=== PATIENT | female | born 1955 | race African-American/Black ===

== ENCOUNTER 2017-11-07 07:33 | Observation (INO) | payer BC ==
[2017-11-07 07:58] LABS: #Basophils 0.1 thou/uL (0.0-0.2); #Eosinphils 0.1 thou/uL (0.0-0.7); #Monocytes 0.4 thou/uL (0.11-0.59); #Neutrophils 3.9 thou/uL (1.40-6.50); %Basophils 0.9 % (0.0-1.0); %Eosinophils 1.2 % (0.0-10.0); %Lymphocytes 31.5 % (21.0-51.0); %Monocytes 6.1 % (0.0-10.0); %Neutrophils 60.3 % (42.0-75.0); Hemoglobin 15.8 g/dL (12.0-16.0); Mean Corpuscular HGB CONC 31.9 g/dL (32.0-36.0); Mean Corpuscular Hemoglobin 27.3 pg (27.0-31.0); Mean Corpuscular Volume 85.5 fl (81.0-99.0); Platelet Count 314 thou/uL (130-400); Red Blood Cell (RBC) Count 5.77 mill/uL (4.20-5.40); White Blood Cell (WBC) Count 6.4 thou/uL (4.8-10.8)
[2017-11-07 08:22] LABS: ALT (SGPT) 19 U/L (8-55); AST (SGOT) 15 U/L (5-34); Albumin 4.7 g/dL (3.4-4.8); Alkaline Phosphatase 112 U/L (40-150); Anion Gap 15 mmol/L (10-20); BUN (Urea Nitrogen) 20 mg/dL (9.8-20.1); Bilirubin, Total 0.5 mg/dL (0.2-1.2); CK (CPK) 82 U/L (29-168); Calc. Creatinine Clearance 0 mL/min (70-130); Calcium 9.5 mg/dL (7.8-10.44); Carbon Dioxide 24 mmol/L (23-31); Chloride 103 mmol/L (98-107); Estimated GFR-MDRD 59; Globulin 2.9 g/dL (2.4-3.5); Glucose 167 mg/dL (80-115); Potassium 4.1 mmol/L (3.5-5.1); Protein, Total 7.6 g/dL (6.0-8.3); Sodium 138 mmol/L (136-145)
[2017-11-07 08:22] LABS: Bilirubin Negative (Negative); Blood, Urine Trace (Negative); Clarity CLEAR (Clear); Glucose, Urine (Dipstick) Negative (Negative); Leukocyte Moderate (Negative); Nitrite Negative (Negative); Protein, Urine (Dipstick) Trace mg/dL (Neg-Trace); Specific Gravity, Urine 1.027 (1.002-1.036); pH, Urine 5.5 (5.0-9.0)
[2017-11-07 08:24] LABS: Bacteria/HPF None Seen HPF (None Seen); Hyaline Casts/LPF 4-6 HYALINE CAST LPF (0-3 Hyaline); Pathc Cast-AUWi Flag 0.29 (0-2.49); RBC/HPF 0-3 HPF (0-3); Squamous Epithelial 0-3 HPF (0-3); WBC/HPF 21-50 HPF (0-3)
[2017-11-07 08:25] LABS: CKMB 1.1 ng/mL (0-6.6); Troponin I Less than 0.010 ng/mL (< 0.028)
--- NOTE | 2017-11-07 09:58 | RAD ---
FRONTAL VIEW CHEST: COMPARISON: 01/07/17. INDICATION: Near syncope. FINDINGS: There is no evidence of consolidation, effusion, or pneumothorax. The lungs are hyperinflated. IMPRESSION: Stable chest. POS: [facility]
[2017-11-07 12:08] LABS: Troponin I Less than 0.010 ng/mL (< 0.028)
[2017-11-07] MEDS ORDERED: hydrALAZINE 20 MG/ML VIAL SLOW IVP PRN (12:25)
[2017-11-07] MEDS ORDERED: HumaLOG 300 UNITS/3 ML VIAL SC PRN ×2 (12:25)
[2017-11-07] MEDS ORDERED: Dextrose 5% in Water 1,000 ML IV PRN (12:25)
[2017-11-07] MEDS ORDERED: Mag-Al 1200 mg/1200 mg/30 ML UDCUP PO PRN (12:25)
[2017-11-07] MEDS ORDERED: Ondansetron ODT 4 MG TAB PO PRN (12:25)
[2017-11-07] MEDS ORDERED: Acetaminophen 325 MG TAB PO PRN (12:25)
[2017-11-07] MEDS ORDERED: Ondansetron HCl/PF 4 MG/2 ML Vial IVP PRN (12:25)
[2017-11-07] MEDS ORDERED: Milk Of Magnesia 30 ML UDCUP PO PRN (12:25)
[2017-11-07] MEDS ORDERED: Dextrose 50% Abboject 50 ML SYRINGE SLOW IVP PRN (12:25)
[2017-11-07] MEDS: Sodium Chloride 0.9% 1,000 ML IV SCH ×2 (13:01→23:15)
--- NOTE | 2017-11-07 13:22 | HP ---
PRIMARY CARE PHYSICIAN: Alisa Rollins. CHIEF COMPLAINT: "I passed out." HISTORY OF PRESENT ILLNESS: Ms. Proctor is a very pleasant 62-year-old -[place] female who has a history of diabetes mellitus and hypertension. She says that she started feeling sick the day before yesterday and then vomited later that evening and then the following morning, she said that s he was lying in bed and felt lightheaded and she thought it might pass. She says she then stood up a nd was walking across the room and then found herself on the floor and she assumed she must have pass ed out. She denies having any chest pain prior to this event. The only symptom was feeling a bit li ghtheaded. She admits that she has been out of her glyburide for the past week and she is not sure w hat her blood sugars were doing when this occurred. She did have a similar episode that happened [place] 2.5-3 years ago. Those records were reviewed. She had a nuclear stress test and carotid Dopplers as well as an echo, all of which were negative. She says that she was told that it might be due to something about when she stands up. The patient otherwise has some complaints of some pain in her le ft leg off and on, but now her leg is not hurting and she also complained of some soreness in her mid abdominal region, but otherwise is feeling fine. The nausea has resolved. REVIEW OF SYSTEMS: Constitutional: There have been no fevers, no chills, no night sweats, no weight loss. HEENT: No headache. She did feel a little bit lightheaded, but no dizziness, no visual chin ges, no sore throat, rhinorrhea, neck pain, no adenopathy. Pulmonary: No hemoptysis, no cough, no w heezing. Cardiovascular: She denies any chest pain. There is no shortness of breath, no PND, no or thopnea. Gastrointestinal: She did have some nausea and vomiting. She had 3 episodes the night israel or to admission and some mild epigastric abdominal pain. No hematemesis, no melena, no diarrhea. Ge nitourinary: She has had some urinary frequency in the last couple of days after she ran out of glyb uride. No dysuria, no hematuria. Musculoskeletal: Again, she complains of some pains in her left l eg off and on, sometimes it makes it hard for her to walk. She also says that she notices some swell ing in her hands and feet. She says sometimes it gets as both get as balloons and it is hard to clos e them and she has this off and on. Neurologic: She has had no focal weakness, numbness and no seiz ures. Psychiatric: No symptoms of anxiety or depression. Skin/Integument: No skin changes. No ra sh. PAST MEDICAL HISTORY: Significant for diabetes mellitus, hyperlipidemia, tobacco abuse and hypertens ion. PAST SURGICAL HISTORY: She has had a hysterectomy. ALLERGIES: No known drug allergies. SOCIAL HISTORY: She is . She has 4 children of her own. Her has two of his own. Sh natacha occasionally smokes as well as she occasionally drinks. Her surrogate decision maker is her yash caro and that is Mr. Sage Baird. FAMILY HISTORY: Significant for intestinal cancer in her mother. MEDICATIONS: She takes glyburide and lisinopril. She is not sure of either dose and she admits she has been out of glyburide for the last week. PHYSICAL EXAMINATION: GENERAL: She is alert and oriented. She appears to be in no acute distress. She is actually sittin g up on the stretcher eating a box lunch, well-developed, well-nourished. VITAL SIGNS: Blood pressure was 140/91, heart rate 67, respiratory rate of 16 and temperature is 98. 7. HEENT: Pupils are equal, round and reactive. Extraocular muscles are intact. Her sclerae are anict sarahi. Throat: There is no erythema, no exudates. NECK: No adenopathy, no bruits. LUNGS: Clear to auscultation. There is no wheezing, no rales. CARDIOVASCULAR: She has a normal S1 and S2. I did not appreciate an S3 or S4. No murmurs, clicks, no rubs. ABDOMEN: Soft. She did have some mid abdominal tenderness, but there is no rebound, no guarding, no organomegaly. EXTREMITIES: There is no clubbing, cyanosis, no edema. She has got good dorsalis pedis pulses and p osterior tibial pulses bilaterally. There is no warmth, was negative cords. NEUROLOGIC: Her muscle strength was 5/5 in both her upper and lower extremities. She had a negative straight leg raises on the left. No skin changes. LABORATORY RESULTS AND IMAGING DATA: Sodium 138, potassium 4.1, chloride is 103, CO2 is 24, BUN of 2 0, creatinine 1.13, glucose is 167. Lactic acid was 1.3. White blood cell count 6.4, hemoglobin 15. 8, hematocrit is 49.3 and platelet count is 314. Urinalysis was significant for 21-50 wbc's. There is no bacteria seen, and nitrites were negative and she had an EKG, which was sinus rhythm. The rate was in the 60s and it was normal. There was no ST wave changes that is by my reading and she also h ad a chest x-ray which was stable. No changes. ASSESSMENT AND PLAN: This is a pleasant 62-year-old female that presents with a: 1. Syncopal episode. It is very similar to previous presentation about 2 years ago and at that time she had a full workup including stress test, echo and carotid Dopplers, all of which were negative. It is interesting that each episode occurs at night or in the enrollment consultant hours. This was discuss ed and she has not been checking her blood sugars. In one episode, she got extremely diaphoretic and I explained to her that she could be getting hypoglycemic and that could be precipitating these epis odes and that she will need to check her blood sugars at night or when this happens. Other possibili ties include orthostatic hypotension. Her creatinine is slightly elevated from baseline and she has been out of glyburide for a week and has had some polyuria as a result and then she vomited prior to the episode and I suspect she could have had orthostatic hypotension as well. As a precaution, we wi ll go ahead and place her in observation, start her on IV fluids for hydration and restart glyburide. The emergency room physician had ordered an ultrasound to evaluate the abdominal pain in the event that she did have gallstones and we will also order an anti-CCP to rule out rheumatoid arthritis as w ell as a rheumatoid factor. 2. With regards to the left leg pain, it is currently not hurting now. Her leg looks completely yaakov ign with no swelling. Good distal pulses. Negative straight leg raising. It is unclear whether or not this could be some type of musculoskeletal strain, but this can be evaluated in the outpatient se tting.
[2017-11-07 14:58] LABS: Troponin I Less than 0.010 ng/mL (< 0.028)
[2017-11-07 15:44] VITALS: BMI 20.1
[2017-11-08 05:19] LABS: #Eosinphils 0.1 thou/uL (0.0-0.7); #Monocytes 0.4 thou/uL (0.11-0.59); #Neutrophils 2.8 thou/uL (1.40-6.50); %Basophils 0.8 % (0.0-1.0); %Eosinophils 2.2 % (0.0-10.0); %Lymphocytes 36.5 % (21.0-51.0); %Monocytes 8.1 % (0.0-10.0); %Neutrophils 52.4 % (42.0-75.0); Hemoglobin 13.1 g/dL (12.0-16.0); Mean Corpuscular HGB CONC 32.4 g/dL (32.0-36.0); Mean Corpuscular Hemoglobin 27.9 pg (27.0-31.0); Mean Platelet Volume 8.4 fL (7.4-10.4); Platelet Count 254 thou/uL (130-400); RBC Distribution Width 12.6 % (11.5-14.5); White Blood Cell (WBC) Count 5.4 thou/uL (4.8-10.8)
[2017-11-08 05:25] LABS: Anion Gap 9 mmol/L (10-20); BUN (Urea Nitrogen) 14 mg/dL (9.8-20.1); Calc. Creatinine Clearance 62 mL/min (70-130); Calcium 8.6 mg/dL (7.8-10.44); Carbon Dioxide 26 mmol/L (23-31); Chloride 107 mmol/L (98-107); Estimated GFR-MDRD Greater than 90; Glucose 171 mg/dL (80-115); Potassium 4.2 mmol/L (3.5-5.1); Sodium 138 mmol/L (136-145)
--- NOTE | 2017-11-08 08:54 | ULT ---
SONOGRAM ABDOMEN COMPLETE: Date: 11/08/17 HISTORY: Abdominal pain. Nausea and vomiting. FINDINGS: Gallbladder has a normal appearance without evidence of stones. Common duct is 0.3 cm. Liver is diffu sely echogenic without focal mass or intrahepatic biliary dilatation. No free fluid. The spleen, kidn eys, and visualized portions of the abdominal aorta, IVC, and pancreas have a normal sonographic appe arance. IMPRESSION: 1. No sonographic evidence of gallstones or biliary obstruction. 2. Hepatic steatosis. POS: [facility]
[2017-11-08] MEDS ORDERED: Enoxaparin Sodium 40 MG/0.4 ML SYRINGE SC SCH (09:00)
[2017-11-08] MEDS: Sodium Chloride 0.9% 1,000 ML IV SCH (09:13)
--- NOTE | 2017-11-08 12:05 | PDOC.PN ---
- Subjective Encounter Start Date: 11/08/17 Encounter Start Time: 12:02 Ms. Proctor was seen today in follow-up. She says she was up " all night" due to blood draws, otherwise ok. - Objective Resuscitation Status: Resuscitation Status FULL:Full Resuscitation MAR Reviewed: Yes Vital Signs & Weight: Vital Signs (12 hours) Temp Pulse Resp BP BP Pulse Ox 11/08/17 08:30 98.1 F 60 16 11/08/17 07:28 98.1 F 60 16 146/77 H 97 11/08/17 04:25 97.5 F L 68 18 140/89 98 Weight Weight 103 lb 5 oz I&O: 11/07/17 11/08/17 11/09/17 06:59 06:59 06:59 Intake Total 1200 Balance 1200 Result Diagrams: 11/08/17 04:24 11/08/17 04:24 Additional Labs: Accuchecks 11/08/17 11/07/17 11/07/17 10:51 20:56 16:11 POC Glucose 203 H 184 H 182 H 11/07/17 13:00 POC Glucose 263 H Phys Exam - Physical Examination HEENT: PERRLA Respiratory: no wheezing, no rales, no rhonchi, clear to auscultation bilateral Cardiovascular: RRR, no significant murmur, no rub Gastrointestinal: soft, non-tender, no distention, positive bowel sounds Musculoskeletal: no edema Dx/Plan (1) Dehydration Code(s): E86.0 - DEHYDRATION Status: Acute (2) Syncope Code(s): R55 - SYNCOPE AND COLLAPSE Status: Acute (3) DM type 2 (diabetes mellitus, type 2) Status: Chronic (4) Fatty liver Code(s): K76.0 - FATTY (CHANGE OF) LIVER, NOT ELSEWHERE CLASSIFIED Status: Chronic - Plan * Syncope- I suspect this was due to dehydration * Abdominal ultrasound- was negative for gallstones, demonstrated fattyliver- which can be treated as outpatient * Uncontrolled DM- discussed with patient in detail, she will need to check her blood glucose at least twice a day and follow-up with her primary care physician for further instructions.
[2017-11-08 12:31] VITALS: BP 174/77; TEMP 98.5
--- NOTE | 2017-11-08 21:08 | DIS ---
PRIMARY CARE PHYSICIAN: Alisa Rollins NP DATE OF ADMISSION: 11/07/2017 DATE OF DISCHARGE: 11/08/2017 DISCHARGE DISPOSITION: Home. PRIMARY DISCHARGE DIAGNOSES: 1. Syncope, likely related to dehydration. 2. Diabetes mellitus, type 2. 3. Hyperlipidemia. 4. Tobacco abuse. 5. Hypertension. DISCHARGE MEDICATIONS: Same as on admission and include lisinopril 10 mg daily and glipizide 5 mg tw ice a day. CODE STATUS: FULL CODE. ALLERGIES: No known drug allergies. PROCEDURES DONE DURING ADMISSION: The patient had an abdominal ultrasound, which was negative for ch olelithiasis, but did show some fatty infiltration of the liver. HOSPITAL COURSE: Ms. Proctor is a pleasant 62-year-old female that presented to the emergency room with complaint of passing out at home. It was very similar to at least two other episodes that she has had. She came to our hospital approximately 2 years ago and had a workup including a nuclear str ess test, carotid Dopplers, and an echo, all of which were negative. The events surrounding the sync opal episode make it suspicious for possible volume depletion in that. She had been out of her glybu ride for over a week and noted some polyuria as a result of that and then had an episode of vomiting then the night before and her creatinine was slightly elevated as well. Troponins were all negative and after given the patient some IV fluids, she was feeling much better the next day and is being dis charged home with close followup. She was instructed to check her blood sugars at least twice a day record them and bring those in to her primary care physician so that she can make adjustments on her medications if needed and also she was told to follow up with regards to some hand and feet swelling that she was having and anti-CCP as well as a rheumatoid factor were drawn, but those results were pe nding at the time of discharge.
[2017-11-10 11:48] LABS: CCP IgG Antibody Less than 0.4 EliAU/mL (<7 Negative); EliA RAS New Method **** NEW METHOD ****; Rheumatoid Factor IgA Antibody 4.4 IU/mL (<14 Negative); Rheumatoid Factor IgM Antibody 1.2 IU/mL (<3.5 Negative)
== END 2017-11-08 12:53 | disposition home or self-care (01) ==
LOC: ERS 07:33 → 2SW 12:19
PROVIDERS: ADMIT Internal Medicine; ATTEND Internal Medicine
DX: R55 Syncope and collapse (principal); E11.9 Type 2 diabetes mellitus without complications; E78.5 Hyperlipidemia, unspecified; F17.200 Nicotine dependence, unspecified, uncomplicated; I10 Essential (primary) hypertension; K76.0 Fatty (change of) liver, not elsewhere classified; Z79.84 Long term (current) use of oral hypoglycemic drugs; Z79.899 Other long term (current) drug therapy; Z90.710 Acquired absence of both cervix and uterus
CPT/HCPCS: 36415; 36416; 71045; 76700; 80048; 80053; 81003; 81015; 82553; 83520; 83605; 84484; 85025; 86200; 87086; 93005; 94760; 96360; 96361; 96372; G0378; G8978-GP-CI; G8979-GP-CI; G8980-GP-CI; J1650

== ENCOUNTER 2018-03-26 12:23 | Emergency (ER) | payer BC ==
[2018-03-26 13:09] LABS: #Eosinphils 0.1 thou/uL (0.0-0.7); #Lymphocytes 1.5 thou/uL (1.20-3.40); #Monocytes 0.3 thou/uL (0.11-0.59); #Neutrophils 3.3 thou/uL (1.40-6.50); %Basophils 0.6 % (0.0-1.0); %Eosinophils 1.8 % (0.0-10.0); %Monocytes 5.7 % (0.0-10.0); %Neutrophils 62.9 % (42.0-75.0); Hemoglobin 13.1 g/dL (12.0-16.0); Mean Corpuscular HGB CONC 33.6 g/dL (32.0-36.0); Mean Corpuscular Hemoglobin 27.9 pg (27.0-31.0); Platelet Count 219 thou/uL (130-400); RBC Distribution Width 12.3 % (11.5-14.5); Red Blood Cell (RBC) Count 4.69 mill/uL (4.20-5.40); White Blood Cell (WBC) Count 5.3 thou/uL (4.8-10.8)
[2018-03-26 13:30] LABS: ALT (SGPT) 12 U/L (8-55); AST (SGOT) 10 U/L (5-34); Alkaline Phosphatase 101 U/L (40-150); Anion Gap 16 mmol/L (10-20); BUN (Urea Nitrogen) 14 mg/dL (9.8-20.1); Bilirubin, Total 0.3 mg/dL (0.2-1.2); Calc. Creatinine Clearance 0 mL/min (70-130); Calcium 8.8 mg/dL (7.8-10.44); Carbon Dioxide 20 mmol/L (23-31); Chloride 108 mmol/L (98-107); Estimated GFR-MDRD Greater than 90; Globulin 2.4 g/dL (2.4-3.5); Glucose 207 mg/dL (80-115); Potassium 4.1 mmol/L (3.5-5.1); Protein, Total 6.4 g/dL (6.0-8.3); Sodium 140 mmol/L (136-145)
[2018-03-26 13:33] LABS: CKMB 1.3 ng/mL (0-6.6); Troponin I Less than 0.010 ng/mL (< 0.028)
--- NOTE | 2018-03-26 14:07 | RAD ---
PORTABLE AP CHEST X-RAY: 03/26/2018 HISTORY: Dizziness and shaking while walking up stairs at work today. Syncope. Nausea and headache. COMPARISON: 11/07/2017 FINDINGS: The cardiac silhouette is magnified by projection but is at the upper limits of normal to borderline enlarged. The pulmonary vasculature is within normal limits. The lungs are clear. There has been n o other interval change from the prior study. IMPRESSION: 1. No acute cardiopulmonary process. 2. Upper limits of normal to borderline cardiomegaly. POS: [facility]
--- NOTE | 2018-03-28 16:38 | EKG ---
Test Reason : Blood Pressure : / mmHG Vent. Rate : 063 BPM Atrial Rate : 063 BPM P-R Int : 124 ms QRS Dur : 062 ms QT Int : 430 ms P-R-T Axes : 034 073 041 degrees QTc Int : 440 ms Normal sinus rhythm Normal ECG Confirmed by EDUIN ZALDIVAR ([id number]), assignment desk editor RUBINA NICOLE ([id number] on 03/28/2018 4:37:26 PM Referred By: Confirmed By:EDUIN ZALDIVAR
== END 2018-03-26 13:52 | disposition home or self-care (01) ==
LOC: ERS 12:23
DX: R55 Syncope and collapse (principal); I10 Essential (primary) hypertension; E78.5 Hyperlipidemia, unspecified; E11.9 Type 2 diabetes mellitus without complications; F17.210 Nicotine dependence, cigarettes, uncomplicated; Z79.899 Other long term (current) drug therapy
CPT/HCPCS: 36415; 71045; 80053; 82553; 84484; 85025; 85379; 93005; 96360

== ENCOUNTER 2018-07-31 16:11 | Emergency (ER) | payer BC ==
[2018-07-31 17:44] LABS: #Eosinphils 0.1 thou/uL (0.0-0.7); #Lymphocytes 2.1 thou/uL (1.20-3.40); #Monocytes 0.4 thou/uL (0.11-0.59); #Neutrophils 3.6 thou/uL (1.40-6.50); %Basophils 0.8 % (0.0-1.0); %Eosinophils 1.9 % (0.0-10.0); %Lymphocytes 33.9 % (21.0-51.0); %Monocytes 6.7 % (0.0-10.0); %Neutrophils 56.7 % (42.0-75.0); Hemoglobin 14.1 g/dL (12.0-16.0); Mean Corpuscular HGB CONC 32.7 g/dL (32.0-36.0); Mean Corpuscular Volume 82.6 fL (78.0-98.0); Mean Platelet Volume 8.6 fL (7.4-10.4); Platelet Count 279 thou/uL (130-400); RBC Distribution Width 12.2 % (11.5-14.5); Red Blood Cell (RBC) Count 5.21 mill/uL (4.20-5.40); White Blood Cell (WBC) Count 6.3 thou/uL (4.8-10.8)
[2018-07-31 18:07] LABS: ALT (SGPT) 13 U/L (8-55); AST (SGOT) 12 U/L (5-34); Albumin 4.4 g/dL (3.4-4.8); Alkaline Phosphatase 152 U/L (40-150); Anion Gap 12 mmol/L (10-20); BUN (Urea Nitrogen) 15 mg/dL (9.8-20.1); Bilirubin, Total 0.2 mg/dL (0.2-1.2); Calc. Creatinine Clearance 0 mL/min (70-130); Calcium 9.6 mg/dL (7.8-10.44); Carbon Dioxide 29 mmol/L (23-31); Chloride 99 mmol/L (98-107); Estimated GFR-MDRD 71; Globulin 3.1 g/dL (2.4-3.5); Glucose 266 mg/dL (80-115); Potassium 4.1 mmol/L (3.5-5.1); Protein, Total 7.5 g/dL (6.0-8.3); Sodium 136 mmol/L (136-145)
[2018-07-31 18:18] LABS: Bilirubin Negative (Negative); Blood, Urine Negative (Negative); Clarity CLEAR (Clear); Glucose, Urine (Dipstick) >=1000 mg/dL (Negative); Leukocyte Small (Negative); Nitrite Negative (Negative); Protein, Urine (Dipstick) Trace mg/dL (Neg-Trace); Specific Gravity, Urine 1.029 (1.002-1.036); Urobilinogen 0.2 mg/dL (0.2-1.0); pH, Urine 6.5 (5.0-9.0)
[2018-07-31 18:20] LABS: Bacteria/HPF None Seen HPF (None Seen); Hyaline Casts/LPF 0-3 HYALINE CAST LPF (0-3 Hyaline); Squamous Epithelial 0-3 HPF (0-3)
--- NOTE | 2018-07-31 19:42 | CT ---
NONCONTRAST HEAD CT: 07/31/18 HISTORY: Left arm pain and hand numbness. COMPARISON: 01/07/17. FINDINGS: No parenchymal hemorrhage. No extra-axial hematoma. No midline shift. Basilar cisterns are patent. Br ain volume, age appropriate. Cortical hughes-white matter differentiation is preserved. No evidence of hydrocephalus. Stable white matter hypodensities likely due to chronic small vessel is chemic change. Calvarium is intact. Adequate aeration of the sinuses and mastoid air cells. IMPRESSION: No acute intracranial process. POS: [facility]
== END 2018-07-31 19:45 | disposition home or self-care (01) ==
LOC: ERS 16:11
DX: M54.12 Radiculopathy, cervical region (principal); N89.8 Other specified noninflammatory disorders of vagina; I10 Essential (primary) hypertension; E78.5 Hyperlipidemia, unspecified; E11.9 Type 2 diabetes mellitus without complications; F17.210 Nicotine dependence, cigarettes, uncomplicated; Z79.899 Other long term (current) drug therapy
CPT/HCPCS: 36415; 70450; 80053; 81003; 81015; 85025; 87086

== ENCOUNTER 2018-10-29 11:59 | Emergency (ER) | payer BC ==
[2018-10-29] MEDS ORDERED: HYDROcodone/Acetaminophen 5/325 mg Tablet ONE (13:01)
[2018-10-29] MEDS ORDERED: Acyclovir 400 mg Tablet PO SCH (13:30)
== END 2018-10-29 14:27 | disposition home or self-care (01) ==
LOC: ERS 11:59
DX: B02.9 Zoster without complications (principal); I10 Essential (primary) hypertension; E78.5 Hyperlipidemia, unspecified; E11.9 Type 2 diabetes mellitus without complications; Z87.891 Personal history of nicotine dependence; Z79.84 Long term (current) use of oral hypoglycemic drugs; Z79.899 Other long term (current) drug therapy
CPT/HCPCS: 99282

== ENCOUNTER 2019-02-05 19:36 | Emergency (ER) | payer BC ==
[2019-02-05] MEDS ORDERED: Ketorolac Tromethamine 30 MG/ML VIAL ONE (22:40)
[2019-02-05] MEDS ORDERED: Adacel (T-DAP) 0.5 ML SYRINGE ONE (22:45)
[2019-02-05 23:01] LABS: #Basophils 0.1 thou/uL (0.0-0.2); #Eosinphils 0.1 thou/uL (0.0-0.7); #Monocytes 0.5 thou/uL (0.11-0.59); #Neutrophils 7.8 thou/uL (1.40-6.50); %Basophils 0.5 % (0.0-1.0); %Eosinophils 1.1 % (0.0-10.0); %Lymphocytes 19.2 % (21.0-51.0); %Neutrophils 74.1 % (42.0-75.0); Hemoglobin 14.6 g/dL (12.0-16.0); Mean Corpuscular HGB CONC 33.3 g/dL (32.0-36.0); Mean Corpuscular Hemoglobin 27.4 pg (27.0-31.0); Mean Corpuscular Volume 82.5 fL (78.0-98.0); Mean Platelet Volume 8.6 fL (7.4-10.4); Platelet Count 266 thou/uL (130-400); RBC Distribution Width 12.5 % (11.5-14.5); Red Blood Cell (RBC) Count 5.31 mill/uL (4.20-5.40); White Blood Cell (WBC) Count 10.5 thou/uL (4.8-10.8)
[2019-02-05 23:22] LABS: ALT (SGPT) 18 U/L (8-55); AST (SGOT) 12 U/L (5-34); Albumin 4.7 g/dL (3.4-4.8); Alkaline Phosphatase 128 U/L (40-150); Anion Gap 21 mmol/L (10-20); BUN (Urea Nitrogen) 15 mg/dL (9.8-20.1); Bilirubin, Total 0.3 mg/dL (0.2-1.2); CRP (Inflammatory) 0.88 mg/dL (= or < 0.5); Calc. Creatinine Clearance 0 mL/min (70-130); Calcium 9.6 mg/dL (7.8-10.44); Carbon Dioxide 19 mmol/L (23-31); Chloride 100 mmol/L (98-107); Estimated GFR-MDRD 65; Globulin 3.2 g/dL (2.4-3.5); Glucose 417 mg/dL (80-115); Potassium 4.5 mmol/L (3.5-5.1); Protein, Total 7.9 g/dL (6.0-8.3); Sodium 135 mmol/L (136-145)
[2019-02-05] MEDS ORDERED: Piperacillin/Tazobactam 3.375 GM VIAL ONE (23:59)
== END 2019-02-06 01:25 | disposition short-term general hospital (02) ==
LOC: ERS 19:36
DX: S63.611A Unspecified sprain of left index finger, initial encounter (principal); I10 Essential (primary) hypertension; E78.5 Hyperlipidemia, unspecified; Z87.891 Personal history of nicotine dependence; Z79.899 Other long term (current) drug therapy; W26.0XXA Contact with knife, initial encounter
CPT/HCPCS: 36415; 80053; 85025; 85652; 86140; 87040; 87149; 90471; 90715; 96365; 96367; 96375; J1885; J2543; J3370

== ENCOUNTER 2019-06-28 16:42 | Emergency (ER) | payer BC ==
[2019-06-28] MEDS ORDERED: Ketorolac Tromethamine 30 MG/ML VIAL ONE (18:20)
== END 2019-06-28 18:36 | disposition home or self-care (01) ==
LOC: ERS 16:42
DX: H71.91 Unspecified cholesteatoma, right ear (principal); E11.9 Type 2 diabetes mellitus without complications; I10 Essential (primary) hypertension; Z87.891 Personal history of nicotine dependence
CPT/HCPCS: 96372; 99282; J1885

== ENCOUNTER 2020-08-18 09:42 | Emergency (ER) | payer BC ==
[2020-08-18] MEDS ORDERED: Promethazine HCl 25 MG/ML VIAL ONE (10:00)
[2020-08-18] MEDS ORDERED: Aspirin Chewable 81 MG TAB ONE (10:18)
--- NOTE | 2020-08-18 10:47 | RAD ---
Exam: Chest one view HISTORY:Weakness Comparison: 03/26/2018 FINDINGS: Cardiac silhouette: Normal Aorta: Unremarkable Pulmonary vessels: Normal Costophrenic angles: Clear LUNGS: No masses or consolidation. Pneumothorax: None Osseous abnormalities: None IMPRESSION: No acute cardiopulmonary process.
[2020-08-18 10:56] LABS: #Lymphocytes 1.1 thou/uL (1.20-3.40); #Monocytes 0.3 thou/uL (0.11-0.59); #Neutrophils 3.7 thou/uL (1.40-6.50); %Basophils 0.9 % (0.0-1.0); %Eosinophils 0.5 % (0.0-10.0); %Monocytes 5.1 % (0.0-10.0); %Neutrophils 72.6 % (42.0-75.0); Hemoglobin 14.7 g/dL (12.0-16.0); Mean Corpuscular HGB CONC 33.5 g/dL (32.0-36.0); Mean Corpuscular Hemoglobin 27.7 pg (27.0-31.0); Mean Corpuscular Volume 82.7 fL (78.0-98.0); Mean Platelet Volume 9.1 fL (7.4-10.4); Platelet Count 214 thou/uL (130-400); RBC Distribution Width 12.3 % (11.5-14.5); Red Blood Cell (RBC) Count 5.29 mill/uL (4.20-5.40); White Blood Cell (WBC) Count 5.1 thou/uL (4.8-10.8)
[2020-08-18 11:05] LABS: Bacteria/HPF None Seen HPF (None Seen); Bilirubin Negative (Negative); Blood, Urine Trace (Negative); Clarity Clear (Clear); Glucose, Urine (Dipstick) Greater than 1000 mg/dL (Negative); Ketone, Urine 60 mg/dL (Negative); Leukocyte Negative Leu/uL (Negative); Nitrite Negative (Negative); Protein, Urine (Dipstick) Negative (Neg-Trace); RBC/HPF 0-3 HPF (0-3); Squamous Epithelial 0-3 HPF (0-3); Urobilinogen Normal mg/dL (Less than 2); WBC/HPF 0-3 HPF (0-3); pH, Urine 5.5 (5.0-9.0)
[2020-08-18] MEDS ORDERED: Lidocaine Viscous Sol 2% 15 ml UD Cup ONE (11:12)
[2020-08-18] MEDS ORDERED: Mag-Al 1200 mg/1200 mg/30 ML UDCUP ONE (11:12)
[2020-08-18 11:20] LABS: ALT (SGPT) 19 U/L (8-55); AST (SGOT) 12 U/L (5-34); Albumin 4.4 g/dL (3.4-4.8); Alkaline Phosphatase 115 U/L (40-110); Anion Gap 17 mmol/L (10-20); BUN (Urea Nitrogen) 10 mg/dL (9.8-20.1); Bilirubin, Total 0.6 mg/dL (0.2-1.2); Calc. Creatinine Clearance 0 mL/min (70-130); Carbon Dioxide 25 mmol/L (23-31); Chloride 99 mmol/L (98-107); Globulin 2.7 g/dL (2.4-3.5); Glucose 360 mg/dL (80-115); Lipase 28 U/L (8-78); Potassium 3.9 mmol/L (3.5-5.1); Protein, Total 7.1 g/dL (6.0-8.3); Sodium 137 mmol/L (136-145)
[2020-08-18] MEDS ORDERED: Famotidine/PF 20 mg/2ml Vial ONE (12:24)
--- NOTE | 2020-09-09 22:15 | EKG ---
Test Reason : Blood Pressure : / mmHG Vent. Rate : 057 BPM Atrial Rate : 057 BPM P-R Int : 120 ms QRS Dur : 082 ms QT Int : 466 ms P-R-T Axes : 057 069 062 degrees QTc Int : 453 ms Sinus bradycardia Otherwise normal ECG Confirmed by RENZO SARAVIA DO ([id number]), scientific editor EMILIANO JENSEN ([id number] on 09/09/2020 10:15:49 PM Referred By: Confirmed By:RENZO SARAVIA DO
== END 2020-08-18 12:38 | disposition home or self-care (01) ==
LOC: ERS 09:42
DX: K29.70 Gastritis, unspecified, without bleeding (principal); E11.65 Type 2 diabetes mellitus with hyperglycemia; R11.2 Nausea with vomiting, unspecified; I10 Essential (primary) hypertension; E78.00 Pure hypercholesterolemia, unspecified; E78.5 Hyperlipidemia, unspecified; Z87.891 Personal history of nicotine dependence; Z79.899 Other long term (current) drug therapy; Z79.84 Long term (current) use of oral hypoglycemic drugs
CPT/HCPCS: 36415; 71045; 80053; 81003; 81015; 83690; 83880; 84484; 85025; 85379; 93005; 96374; 96375; J2550; S0028

== ENCOUNTER 2021-12-16 20:28 | Emergency (ER) | payer MEDICARE ==
[~2021-12-16 20:28] MED LIST: Iopamidol-370 76% 500 ML 1 ML ONE
[2021-12-16] MEDS ORDERED: Ondansetron PF 4 MG/2 ML Vial ONE (20:59)
[2021-12-16 21:10] LABS: #Lymphocytes 1.8 thou/uL (1.20-3.40); #Monocytes 0.8 thou/uL (0.11-0.59); #Neutrophils 7.9 thou/uL (1.40-6.50); %Basophils 0.3 % (0.0-1.0); %Eosinophils 0.1 % (0.0-10.0); %Lymphocytes 17.3 % (21.0-51.0); %Monocytes 7.2 % (0.0-10.0); %Neutrophils 75.1 % (42.0-75.0); Hemoglobin 16.5 g/dL (12.0-16.0); Mean Corpuscular HGB CONC 33.6 g/dL (32.0-36.0); Mean Corpuscular Hemoglobin 28.3 pg (27.0-31.0); Mean Corpuscular Volume 84.4 fL (78.0-98.0); Mean Platelet Volume 7.9 fL (7.4-10.4); Platelet Count 354 thou/uL (130-400); RBC Distribution Width 12.8 % (11.5-14.5); Red Blood Cell (RBC) Count 5.82 mill/uL (4.20-5.40); White Blood Cell (WBC) Count 10.5 thou/uL (4.8-10.8)
[2021-12-16 21:31] LABS: ALT (SGPT) 27 U/L (8-55); AST (SGOT) 14 U/L (5-34); Albumin 5.6 g/dL (3.4-4.8); Alkaline Phosphatase 111 U/L (40-110); Anion Gap 28 mmol/L (10-20); BUN (Urea Nitrogen) 24 mg/dL (9.8-20.1); Bilirubin, Total 0.8 mg/dL (0.2-1.2); Calc. Creatinine Clearance 0 mL/min (70-130); Calcium 10.8 mg/dL (7.8-10.44); Carbon Dioxide 22 mmol/L (23-31); Chloride 95 mmol/L (98-107); Globulin 3.5 g/dL (2.4-3.5); Glucose 339 mg/dL (80-115); Lipase 20 U/L (8-78); Potassium 4.3 mmol/L (3.5-5.1); Protein, Total 9.1 g/dL (5.8-8.1); Sodium 141 mmol/L (136-145)
[2021-12-16] MEDS ORDERED: Morphine 4 MG/ML VIAL ONE (21:45)
[2021-12-16 22:50] LABS: Phosphorus 2.4 mg/dL (2.3-4.7)
[2021-12-16 23:52] LABS: Actual Bicarbonate (HCO3v) 24 mEq/L (22-28); Analyzer IN Cardio ER; Base Excess 0.4 mEq/L (-2.0 to +3.0); Chloride (VBG) 105 mmol/L (98-106); Hemoglobin (Hb) 13.8 g/dL (11.7-16.1); Potassium (VBG) 3.84 mmol/L (3.70-5.30); Sodium 141.1 mmol/L (133-146); pH (venous) 7.44 (7.32-7.43)
[2021-12-17 01:07] LABS: Bacteria/HPF None Seen HPF (None Seen); Bilirubin Negative (Negative); Blood, Urine Trace (Negative); Clarity Clear (Clear); Glucose, Urine (Dipstick) Greater than 1000 mg/dL (Negative); Ketone, Urine 150 mg/dL (Negative); Leukocyte 25 Leu/uL (Negative); Mucous/LPF Rare LPF (<2+); Nitrite Negative (Negative); Protein, Urine (Dipstick) 200 mg/dL (Neg-Trace); RBC/HPF 0-3 HPF (0-3); Urobilinogen Normal mg/dL (Less than 2); pH, Urine 6.5 (5.0-9.0)
[2021-12-17] MEDS ORDERED: Ondansetron PF 4 MG/2 ML Vial ONE (02:07)
== END 2021-12-17 02:20 | disposition home or self-care (01) ==
LOC: ERS 20:28
DX: R11.2 Nausea with vomiting, unspecified (principal); E11.9 Type 2 diabetes mellitus without complications; E78.5 Hyperlipidemia, unspecified; E78.00 Pure hypercholesterolemia, unspecified; M81.0 Age-related osteoporosis without current pathological fracture; Z87.891 Personal history of nicotine dependence
CPT/HCPCS: 36416; 71045; 74177; 80053; 81003; 81015; 82010; 82805; 83690; 83735; 84100; 84484; 85025; 87086; 93005; 96361; 96374; 96375; 96376; J2270; J2405; Q9967

== ENCOUNTER 2022-01-10 21:43 | Emergency (ER) | payer MEDICARE ==
[2022-01-10 22:17] LABS: #Eosinphils 0.1 thou/uL (0.0-0.7); #Lymphocytes 2.1 thou/uL (1.20-3.40); #Monocytes 0.5 thou/uL (0.11-0.59); #Neutrophils 6.4 thou/uL (1.40-6.50); %Basophils 0.4 % (0.0-1.0); %Eosinophils 0.9 % (0.0-10.0); %Lymphocytes 23.2 % (21.0-51.0); %Monocytes 5.5 % (0.0-10.0); Hemoglobin 15.1 g/dL (12.0-16.0); Mean Corpuscular HGB CONC 33.1 g/dL (32.0-36.0); Mean Corpuscular Hemoglobin 28.2 pg (27.0-31.0); Mean Corpuscular Volume 85.4 fL (78.0-98.0); Platelet Count 330 thou/uL (130-400); RBC Distribution Width 12.7 % (11.5-14.5); Red Blood Cell (RBC) Count 5.37 mill/uL (4.20-5.40); White Blood Cell (WBC) Count 9.1 thou/uL (4.8-10.8)
[2022-01-10 22:29] LABS: ALT (SGPT) 19 U/L (8-55); AST (SGOT) 15 U/L (5-34); Albumin 5.1 g/dL (3.4-4.8); Alkaline Phosphatase 105 U/L (40-110); Anion Gap 21 mmol/L (10-20); BUN (Urea Nitrogen) 24 mg/dL (9.8-20.1); Bilirubin, Total 0.6 mg/dL (0.2-1.2); Calc. Creatinine Clearance 0 mL/min (70-130); Calcium 10.4 mg/dL (7.8-10.44); Carbon Dioxide 25 mmol/L (23-31); Chloride 99 mmol/L (98-107); Globulin 3.4 g/dL (2.4-3.5); Glucose 228 mg/dL (80-115); Lipase 36 U/L (8-78); Potassium 3.8 mmol/L (3.5-5.1); Protein, Total 8.5 g/dL (5.8-8.1); Sodium 141 mmol/L (136-145)
[2022-01-10] MEDS ORDERED: Haloperidol Lactate 5 MG/ML VIAL ONE (23:14)
[2022-01-10] MEDS ORDERED: Ondansetron ODT 4 MG TAB ONE (23:14)
[2022-01-10 23:52] LABS: Bilirubin Negative (Negative); Blood, Urine Negative (Negative); Clarity Clear (Clear); Glucose, Urine (Dipstick) Greater than 1000 mg/dL (Negative); Ketone, Urine 40 mg/dL (Negative); Leukocyte Negative Leu/uL (Negative); Nitrite Negative (Negative); Protein, Urine (Dipstick) Negative (Neg-Trace); Specific Gravity, Urine 1.042 (1.002-1.036); Urobilinogen Normal mg/dL (Less than 2); pH, Urine 5.5 (5.0-9.0)
== END 2022-01-11 00:52 | disposition home or self-care (01) ==
LOC: ERS 21:43
DX: R11.15 Cyclical vomiting syndrome unrelated to migraine (principal); I10 Essential (primary) hypertension; E78.5 Hyperlipidemia, unspecified; E11.9 Type 2 diabetes mellitus without complications; E78.00 Pure hypercholesterolemia, unspecified; M81.0 Age-related osteoporosis without current pathological fracture; Z87.891 Personal history of nicotine dependence; Z79.84 Long term (current) use of oral hypoglycemic drugs; Z79.899 Other long term (current) drug therapy
CPT/HCPCS: 36415; 36416; 71045; 80053; 81003; 83690; 84484; 85025; 93005; 96361; 96374; J1630; Q0162

== ENCOUNTER 2022-04-24 09:13 | Outpatient (CLI) | payer OTHER | END 2022-04-24 09:14 | disposition home or self-care (01) | LOC: BICMAMMO 09:13 | PROVIDERS: ATTEND Family Medicine | DX: Z12.31 Encounter for screening mammogram for malignant neoplasm of breast (principal); Z13.820 Encounter for screening for osteoporosis; Z78.0 Asymptomatic menopausal state; M81.0 Age-related osteoporosis without current pathological fracture; M85.851 Other specified disorders of bone density and structure, right thigh; M85.852 Other specified disorders of bone density and structure, left thigh | CPT/HCPCS: 77063; 77067; 77080 ==

== ENCOUNTER 2022-07-20 11:20 | Emergency (ER) | payer MEDICARE, OTHER ==
[2022-07-20 12:08] LABS: #Eosinphils 0.1 thou/uL (0.0-0.7); #Lymphocytes 1.9 thou/uL (1.20-3.40); #Monocytes 0.4 thou/uL (0.11-0.59); #Neutrophils 6.1 thou/uL (1.40-6.50); %Basophils 0.2 % (0.0-1.0); %Eosinophils 0.8 % (0.0-10.0); %Lymphocytes 22.5 % (21.0-51.0); %Neutrophils 71.4 % (42.0-75.0); Hemoglobin 16.4 g/dL (12.0-16.0); Mean Corpuscular HGB CONC 33.6 g/dL (32.0-36.0); Mean Corpuscular Hemoglobin 28.8 pg (27.0-31.0); Mean Corpuscular Volume 85.7 fl (78.0-98.0); Mean Platelet Volume 8.4 fL (7.4-10.4); Platelet Count 299 10x3/uL (130-400); RBC Distribution Width 12.8 % (11.5-14.5); Red Blood Cell (RBC) Count 5.68 mill/uL (4.20-5.40); White Blood Cell (WBC) Count 8.6 10x3/uL (4.8-10.8)
[2022-07-20 12:30] LABS: ALT (SGPT) 25 U/L (8-55); AST (SGOT) 19 U/L (5-34); Albumin 4.9 g/dL (3.4-4.8); Alkaline Phosphatase 105 U/L (40-110); Anion Gap 21 mmol/L (10-20); BUN (Urea Nitrogen) 17 mg/dL (9.8-20.1); Bilirubin, Total 0.7 mg/dL (0.2-1.2); Calc. Creatinine Clearance 0 mL/min (70-130); Calcium 9.7 mg/dL (7.8-10.44); Carbon Dioxide 24 mmol/L (23-31); Chloride 99 mmol/L (98-107); Estimated GFR 67; Globulin 3.2 g/dL (2.4-3.5); Glucose 212 mg/dL (80-115); Lipase 22 U/L (8-78); Potassium 3.8 mmol/L (3.5-5.1); Protein, Total 8.1 g/dL (5.8-8.1); Sodium 140 mmol/L (136-145)
[2022-07-20] MEDS ORDERED: Ondansetron PF 4 MG/2 ML Vial ONE (12:37)
[2022-07-20] MEDS ORDERED: Acetaminophen 500 MG TAB ONE (12:37)
[2022-07-20 13:40] LABS: Bilirubin Negative (Negative); Blood, Urine Negative (Negative); Clarity Clear (Clear); Glucose, Urine (Dipstick) Greater than 1000 mg/dL (Negative); Ketone, Urine 100 mg/dL (Negative); Leukocyte Negative Leu/uL (Negative); Nitrite Negative (Negative); Protein, Urine (Dipstick) 10 mg/dL (Neg-Trace); Specific Gravity, Urine 1.044 (1.002-1.036); Urobilinogen Normal mg/dL (Less than 2); pH, Urine 5.5 (5.0-9.0)
== END 2022-07-20 14:27 | disposition home or self-care (01) ==
LOC: ERS 11:20
DX: R11.2 Nausea with vomiting, unspecified (principal); E86.0 Dehydration; I10 Essential (primary) hypertension; E78.00 Pure hypercholesterolemia, unspecified; E11.9 Type 2 diabetes mellitus without complications; Z79.899 Other long term (current) drug therapy
CPT/HCPCS: 36415; 80053; 81003; 83690; 85025; 87804; 96361; 96374; J2405

== ENCOUNTER 2023-01-31 10:52 | Inpatient (IN) | payer OTHER ==
[2023-01-31] MEDS ORDERED: Morphine 4 MG/ML VIAL ONE (11:11)
[2023-01-31] MEDS ORDERED: Ondansetron PF 4 MG/2 ML Vial ONE ×2 (11:11→12:55)
[2023-01-31 11:23] LABS: #Eosinphils 0.1 thou/uL (0.0-0.7); #Monocytes 0.4 thou/uL (0.11-0.59); #Neutrophils 4.4 thou/uL (1.40-6.50); %Basophils 0.6 % (0.0-1.0); %Eosinophils 0.9 % (0.0-10.0); %Lymphocytes 22.7 % (21.0-51.0); %Monocytes 5.6 % (0.0-10.0); Mean Corpuscular HGB CONC 32.6 g/dL (32.0-36.0); Mean Corpuscular Hemoglobin 26.5 pg (27.0-31.0); Mean Corpuscular Volume 81.3 fl (78.0-98.0); Mean Platelet Volume 10.7 fL (7.4-10.4); Platelet Count 264 10x3/uL (130-400); RBC Distribution Width 13.9 % (11.5-14.5); Red Blood Cell (RBC) Count 5.28 mill/uL (4.20-5.40); White Blood Cell (WBC) Count 6.4 10x3/uL (4.8-10.8)
[2023-01-31 11:48] LABS: ALT (SGPT) 24 U/L (8-55); AST (SGOT) 12 U/L (5-34); Albumin 4.4 g/dL (3.4-4.8); Alkaline Phosphatase 121 U/L (40-110); Anion Gap 18 mmol/L (10-20); BUN (Urea Nitrogen) 10 mg/dL (9.8-20.1); Bilirubin, Total 0.4 mg/dL (0.2-1.2); Calc. Creatinine Clearance 0 mL/min (70-130); Calcium 9.6 mg/dL (7.8-10.44); Carbon Dioxide 21 mmol/L (23-31); Chloride 104 mmol/L (98-107); Estimated GFR 74; Globulin 2.8 g/dL (2.4-3.5); Glucose 345 mg/dL (80-115); Lipase 26 U/L (8-78); Potassium 4.7 mmol/L (3.5-5.1); Protein, Total 7.2 g/dL (5.8-8.1); Sodium 138 mmol/L (136-145)
[2023-01-31] MEDS ORDERED: Piperacillin/Tazobactam 4.5 GM VIAL ONE (12:04)
[2023-01-31] MEDS ORDERED: Iopamidol-370 76% 500 ML MDV (1 ML CHARGE) ONE (12:09)
[2023-01-31] MEDS ORDERED: Vancomycin 1 GM/200 ML (FROZEN) BAG ONE (12:42)
[2023-01-31] MEDS ORDERED: fentaNYL 50 mcg/mL 1 mL Vial ONE (12:56)
[2023-01-31 13:38] LABS: Bacteria/HPF None Seen HPF (None Seen); Bilirubin Negative (Negative); Blood, Urine Negative (Negative); CAUTI Indications for Culture Pelvic or flank pain; Clarity Clear (Clear); Glucose, Urine (Dipstick) Greater than 1000 mg/dL (Negative); Ketone, Urine 10 mg/dL (Negative); Leukocyte Negative Leu/uL (Negative); Nitrite Negative (Negative); Protein, Urine (Dipstick) Negative (Neg-Trace); RBC/HPF 0-3 HPF (0-3); Specific Gravity, Urine 1.022 (1.002-1.036); Squamous Epithelial None Seen HPF (0-3); Urobilinogen Normal mg/dL (Less than 2); WBC/HPF 0-3 HPF (0-3)
[2023-01-31 13:40] LABS: Urine Culture Reflex No No
[2023-01-31 15:45] LABS: SARS-CoV-2 NAA Rapid Test Not Detected (NotDetected)
[2023-01-31 17:32] VITALS: BMI 19.3
[2023-01-31] MEDS ORDERED: Ondansetron PF 4 MG/2 ML Vial IVP PRN (17:45)
[2023-01-31] MEDS ORDERED: Ondansetron ODT 4 MG TAB SL PRN (17:45)
[2023-01-31] MEDS ORDERED: Lactated Ringer's 1,000 ML IV SCH (17:45)
[2023-01-31] MEDS ORDERED: Dextrose 5% in Water 1,000 ML IV PRN (17:49)
[2023-01-31] MEDS ORDERED: Glucagon 1 MG/ML KIT IM PRN (17:49)
[2023-01-31] MEDS ORDERED: Acetaminophen 325 MG TAB PO PRN (17:49)
[2023-01-31] MEDS ORDERED: Dextrose 50% Abboject 50 ML SYRINGE SLOW IVP PRN (17:49)
[2023-01-31] MEDS ORDERED: Metoclopramide HCl 10 MG/2 ML VIAL IVP PRN (17:52)
[2023-01-31] MEDS ORDERED: Fluconazole 100 MG TAB PO SCH (17:53)
[2023-01-31] MEDS: Lactated Ringer's 1,000 ML IV SCH (18:36)
[2023-01-31] MEDS ORDERED: Vancomycin HCl 1 GM in Sodium Chloride 0.9% 250 ML 250 ML IVPB SCH (21:00)
[2023-01-31] MEDS ORDERED: Gabapentin 300 MG CAP PO SCH (21:45)
[2023-01-31] MEDS: Pantoprazole 40 MG VIAL IVP SCH (21:47)
[2023-01-31] MEDS: Piperacillin/Tazobactam 3.375 GM in Sodium Chloride 0.9% 100 ML IVPB SCH (21:47)
[2023-01-31] MEDS: HumaLOG 300 UNITS/3 ML VIAL SC PRN (21:49)
[2023-01-31] MEDS ORDERED: Lactated Ringer's 500 ML IV SCH (22:15)
[2023-02-01] MEDS: HumaLOG 300 UNITS/3 ML VIAL SC PRN ×4 (01:15→19:00)
[2023-02-01] MEDS: Vancomycin HCl 500 MG in Sodium Chloride 0.9% 100 ML IVPB SCH ×2 (01:22→12:58)
[2023-02-01 01:24] LABS: #Monocytes 0.7 thou/uL (0.11-0.59); #Neutrophils 10.5 thou/uL (1.40-6.50); %Basophils 0.3 % (0.0-1.0); %Eosinophils 0.1 % (0.0-10.0); %Lymphocytes 11.3 % (21.0-51.0); %Monocytes 5.4 % (0.0-10.0); %Neutrophils 82.4 % (42.0-75.0); Hemoglobin 12.3 g/dL (12.0-16.0); Mean Corpuscular HGB CONC 32.3 g/dL (32.0-36.0); Mean Corpuscular Hemoglobin 26.8 pg (27.0-31.0); Mean Platelet Volume 10.6 fL (7.4-10.4); Platelet Count 261 10x3/uL (130-400); RBC Distribution Width 14.3 % (11.5-14.5); Red Blood Cell (RBC) Count 4.59 mill/uL (4.20-5.40); White Blood Cell (WBC) Count 12.8 10x3/uL (4.8-10.8)
[2023-02-01] MEDS: Lactated Ringer's 1,000 ML IV SCH ×3 (01:31→11:13)
[2023-02-01 01:45] LABS: Hemoglobin A1c Greater than 14.0 % (4.0-6.0)
[2023-02-01 01:46] LABS: ALT (SGPT) 22 U/L (8-55); AST (SGOT) 14 U/L (5-34); Albumin 3.9 g/dL (3.4-4.8); Alkaline Phosphatase 93 U/L (40-110); Anion Gap 21 mmol/L (10-20); BUN (Urea Nitrogen) 10 mg/dL (9.8-20.1); Bilirubin, Total 0.4 mg/dL (0.2-1.2); Calc. Creatinine Clearance 37 mL/min (70-130); Calcium 8.5 mg/dL (7.8-10.44); Carbon Dioxide 17 mmol/L (23-31); Chloride 106 mmol/L (98-107); Estimated GFR 57; Globulin 2.5 g/dL (2.4-3.5); Glucose 264 mg/dL (80-115); Magnesium 1.6 mg/dL (1.6-2.6); Protein, Total 6.4 g/dL (5.8-8.1); Sodium 140 mmol/L (136-145)
[2023-02-01] MEDS ORDERED: Lactated Ringer's 1,000 ML IV SCH (02:45)
[2023-02-01] MEDS: Piperacillin/Tazobactam 3.375 GM in Sodium Chloride 0.9% 100 ML IVPB SCH ×3 (04:35→21:13)
[2023-02-01 07:37] LABS: Lactic Acid 3.1 mmol/L (0.5-2.2)
[2023-02-01] MEDS: Valsartan 80 MG TAB PO SCH (09:11)
[2023-02-01] MEDS: Alogliptin 25 MG TAB PO SCH (09:11)
[2023-02-01] MEDS: Atorvastatin Calcium 20 MG TAB PO SCH (09:11)
[2023-02-01] MEDS ORDERED: Insulin Glargine 30 UNITS/0.3 ML VIAL SC SCH (09:30)
[2023-02-01] MEDS ORDERED: oxyCODONE/Acetaminophen 5 mg/325 mg Tablet PO SCH (14:30)
[2023-02-01] MEDS: Gabapentin 300 MG CAP PO SCH (21:11)
[2023-02-01] MEDS: Fioricet 325/50/40 mg Tablet PO PRN (21:12)
[2023-02-01] MEDS: Pantoprazole 40 MG VIAL IVP SCH (21:13)
[2023-02-02] MEDS: Vancomycin HCl 500 MG in Sodium Chloride 0.9% 100 ML IVPB SCH (01:11)
[2023-02-02] MEDS: Piperacillin/Tazobactam 3.375 GM in Sodium Chloride 0.9% 100 ML IVPB SCH (03:23)
[2023-02-02] MEDS: Lactated Ringer's 1,000 ML IV SCH ×3 (03:24→21:20)
[2023-02-02 06:18] LABS: ALT (SGPT) 43 U/L (8-55); AST (SGOT) 29 U/L (5-34); Albumin 3.2 g/dL (3.4-4.8); Alkaline Phosphatase 90 U/L (40-110); BUN (Urea Nitrogen) 7 mg/dL (9.8-20.1); Bilirubin, Total 0.4 mg/dL (0.2-1.2); Calc. Creatinine Clearance 56 mL/min (70-130); Calcium 8.5 mg/dL (7.8-10.44); Carbon Dioxide 19 mmol/L (23-31); Chloride 109 mmol/L (98-107); Estimated GFR 95; Globulin 2.4 g/dL (2.4-3.5); Glucose 146 mg/dL (80-115); Magnesium 1.6 mg/dL (1.6-2.6); Potassium 3.5 mmol/L (3.5-5.1); Protein, Total 5.6 g/dL (5.8-8.1); Sodium 138 mmol/L (136-145)
[2023-02-02 06:49] LABS: Anion Gap 14 mmol/L (10-20)
[2023-02-02 10:17] LABS: #Eosinphils 0.1 thou/uL (0.0-0.7); #Monocytes 0.7 thou/uL (0.11-0.59); %Basophils 0.5 % (0.0-1.0); %Eosinophils 0.6 % (0.0-10.0); %Lymphocytes 26.7 % (21.0-51.0); %Monocytes 8.4 % (0.0-10.0); Hemoglobin 12.7 g/dL (12.0-16.0); Mean Corpuscular HGB CONC 31.8 g/dL (32.0-36.0); Mean Corpuscular Hemoglobin 26.2 pg (27.0-31.0); Mean Corpuscular Volume 82.3 fl (78.0-98.0); Mean Platelet Volume 11.3 fL (7.4-10.4); Platelet Count 227 10x3/uL (130-400); RBC Distribution Width 14.5 % (11.5-14.5); Red Blood Cell (RBC) Count 4.85 mill/uL (4.20-5.40)
[2023-02-02] MEDS: Valsartan 80 MG TAB PO SCH (10:29)
[2023-02-02] MEDS: Atorvastatin Calcium 20 MG TAB PO SCH (10:29)
[2023-02-02] MEDS: Sodium Bicarbonate Tab 325 MG TAB PO SCH ×3 (10:29→21:04)
[2023-02-02] MEDS: Insulin Glargine 30 UNITS/0.3 ML VIAL SC SCH (10:29)
[2023-02-02] MEDS: cefTRIAXone\\ROCEPHIN 2 GM in Sodium Chloride 0.9% 100 ML IVPB SCH (10:30)
[2023-02-02] MEDS: Alogliptin 25 MG TAB PO SCH (10:34)
[2023-02-02 10:37] LABS: Lactic Acid 2.3 mmol/L (0.5-2.2)
[2023-02-02] MEDS: Fioricet 325/50/40 mg Tablet PO PRN ×2 (12:38→21:20)
[2023-02-02] MEDS ORDERED: Magnesium Sulfate 3 GM in Sodium Chloride 0.9% 100 ML IVPB SCH (18:30)
[2023-02-02] MEDS ORDERED: Potassium Chloride 20 MEQ TAB PO SCH (18:30)
[2023-02-02] MEDS: Gabapentin 300 MG CAP PO SCH (21:05)
[2023-02-02] MEDS: Pantoprazole 40 MG VIAL IVP SCH (21:32)
[2023-02-03 04:15] LABS: #Eosinphils 0.1 thou/uL (0.0-0.7); #Monocytes 0.7 thou/uL (0.11-0.59); #Neutrophils 5.6 thou/uL (1.40-6.50); %Basophils 0.4 % (0.0-1.0); %Eosinophils 0.7 % (0.0-10.0); %Monocytes 8.1 % (0.0-10.0); %Neutrophils 69.3 % (42.0-75.0); Hemoglobin 13.2 g/dL (12.0-16.0); Mean Corpuscular HGB CONC 32.7 g/dL (32.0-36.0); Mean Corpuscular Hemoglobin 26.9 pg (27.0-31.0); Mean Corpuscular Volume 82.3 fl (78.0-98.0); Mean Platelet Volume 11.2 fL (7.4-10.4); Platelet Count 259 10x3/uL (130-400); RBC Distribution Width 14.2 % (11.5-14.5); Red Blood Cell (RBC) Count 4.91 mill/uL (4.20-5.40)
[2023-02-03 04:42] LABS: ALT (SGPT) 45 U/L (8-55); AST (SGOT) 21 U/L (5-34); Albumin 4.2 g/dL (3.4-4.8); Alkaline Phosphatase 95 U/L (40-110); Anion Gap 14 mmol/L (10-20); BUN (Urea Nitrogen) 6 mg/dL (9.8-20.1); Bilirubin, Total 0.5 mg/dL (0.2-1.2); Calc. Creatinine Clearance 46 mL/min (70-130); Calcium 9.3 mg/dL (7.8-10.44); Carbon Dioxide 31 mmol/L (23-31); Chloride 103 mmol/L (98-107); Estimated GFR 76; Globulin 2.7 g/dL (2.4-3.5); Glucose 172 mg/dL (80-115); Magnesium 2.6 mg/dL (1.6-2.6); Potassium 3.7 mmol/L (3.5-5.1); Protein, Total 6.9 g/dL (5.8-8.1); Sodium 144 mmol/L (136-145)
[2023-02-03] MEDS: HumaLOG 300 UNITS/3 ML VIAL SC PRN ×2 (06:03→11:51)
[2023-02-03] MEDS: Sodium Bicarbonate Tab 325 MG TAB PO SCH (08:20)
[2023-02-03] MEDS: cefTRIAXone\\ROCEPHIN 2 GM in Sodium Chloride 0.9% 100 ML IVPB SCH (08:21)
[2023-02-03] MEDS: Alogliptin 25 MG TAB PO SCH (08:21)
[2023-02-03] MEDS: Valsartan 80 MG TAB PO SCH (08:21)
[2023-02-03] MEDS: Atorvastatin Calcium 20 MG TAB PO SCH (08:21)
[2023-02-03] MEDS: Insulin Glargine 30 UNITS/0.3 ML VIAL SC SCH (08:22)
[2023-02-03 14:42] VITALS: BP 174/93; TEMP 98.3
== END 2023-02-03 16:49 | disposition home or self-care (01) | DRG 865 ==
LOC: ERS 10:52 → EDUNIT# 10:52 → T4-B 17:25 → 2NO 19:20 → OBSVTOIN 02-03 13:54
PROVIDERS: ADMIT Internal Medicine; ATTEND Internal Medicine
DX: B34.9 Viral infection, unspecified (principal); E11.10 Type 2 diabetes mellitus with ketoacidosis without coma; R65.10 Systemic inflammatory response syndrome (SIRS) of non-infectious origin without acute organ dysfunction; R55 Syncope and collapse; I10 Essential (primary) hypertension; E78.5 Hyperlipidemia, unspecified; R33.9 Retention of urine, unspecified; E11.40 Type 2 diabetes mellitus with diabetic neuropathy, unspecified; E86.0 Dehydration; K31.84 Gastroparesis; K76.0 Fatty (change of) liver, not elsewhere classified; E11.65 Type 2 diabetes mellitus with hyperglycemia; Z79.84 Long term (current) use of oral hypoglycemic drugs; Z90.710 Acquired absence of both cervix and uterus; Z79.899 Other long term (current) drug therapy; Z98.890 Other specified postprocedural states; Z87.891 Personal history of nicotine dependence
CPT/HCPCS: 36415; 36416; 51701; 74177; 80053; 81001; 82010; 83036; 83605; 83690; 83735; 83880; 84145; 84484; 85025; 87040; 87081; 87086; 93005; 93010; 96361; 96365; 96367; 96375; 96376; C9113; G0378; J0696; J1815; J2270; J2405; J2543; J2765; J3010; J3370; J3370-JW; J3475; J3490; J7120; Q9967

== ENCOUNTER 2023-09-04 17:01 | Inpatient (IN) | payer OTHER, MEDICARE ==
[~2023-09-04 17:01] MED LIST changes: -Iopamidol-370 76% 500 ML 1 ML ONE; +Iopamidol-370 76% 500 ML MDV (1 ML CHARGE) ONE
[2023-09-04 17:34] LABS: #Eosinphils 0.1 thou/uL (0.0-0.7); #Monocytes 0.7 thou/uL (0.11-0.59); #Neutrophils 3.8 thou/uL (1.40-6.50); %Basophils 0.3 % (0.0-1.0); %Eosinophils 0.9 % (0.0-10.0); %Lymphocytes 39.1 % (21.0-51.0); %Monocytes 9.7 % (0.0-10.0); %Neutrophils 49.6 % (42.0-75.0); Hematocrit 41.9 % (36.0-47.0); Hemoglobin 13.9 g/dL (12.0-16.0); Mean Corpuscular HGB CONC 33.2 g/dL (32.0-36.0); Mean Corpuscular Hemoglobin 27.2 pg (27.0-31.0); Mean Platelet Volume 10.5 fL (7.4-10.4); Platelet Count 342 10x3/uL (130-400); RBC Distribution Width 14.6 % (11.5-14.5); Red Blood Cell (RBC) Count 5.11 mill/uL (4.20-5.40); White Blood Cell (WBC) Count 7.6 10x3/uL (4.8-10.8)
[2023-09-04 17:43] LABS: PTT 26.9 sec (22.9-36.1); Prothrombin Time 12.9 sec (12.0-14.7)
[2023-09-04 17:49] LABS: Critical Call w/ Read Back NUR.DP6@1745
[2023-09-04 17:54] LABS: Troponin I Less than 0.010 ng/mL (< 0.028)
[2023-09-04 17:54] LABS: Actual Bicarbonate (HCO3v) 21.7 mEq/L (22-28); Base Excess -1.2 mEq/L (-2.0 to +3.0); Calcium, Ionized (venous) 1.12 mmol/L (1.16-1.32); Chloride (VBG) 101 mmol/L (98-106); Hematocrit-VBG 41 % (36.0-47.0); Hemoglobin (Hb) 13.9 g/dL (11.7-16.1); Potassium (VBG) 3.59 mmol/L (3.70-5.30); Sodium 141 mmol/L (133-146); pH (venous) 7.459 (7.32-7.43)
[2023-09-04 17:57] LABS: Acetaminophen Less than 10 mcg/mL (10.0-30.0); Alcohol Less than 10.0 mg/dL (Less than 10); Lipase 44 U/L (8-78); Salicylate Less than 8.0 mg/dL (15.0-30.0)
[2023-09-04 18:06] LABS: Magnesium 2.2 mg/dL (1.6-2.6)
[2023-09-04] MEDS ORDERED: fentaNYL 50 mcg/mL 1 mL Vial ONE (18:14)
[2023-09-04] MEDS ORDERED: Ondansetron PF 4 MG/2 ML Vial ONE (18:14)
[2023-09-04 18:24] LABS: ALT (SGPT) 32 U/L (8-55); AST (SGOT) 31 U/L (5-34); Albumin 4.8 g/dL (3.4-4.8); Alkaline Phosphatase 118 U/L (40-110); Anion Gap 20 mmol/L (10-20); BUN (Urea Nitrogen) 20 mg/dL (9.8-20.1); Bilirubin, Total 0.4 mg/dL (0.2-1.2); CK (CPK) 137 U/L (29-168); Calc. Creatinine Clearance 0 mL/min (70-130); Calcium 9.4 mg/dL (7.8-10.44); Carbon Dioxide 22 mmol/L (23-31); Chloride 104 mmol/L (98-107); Estimated GFR 74; Glucose 151 mg/dL (80-115); Potassium 3.9 mmol/L (3.5-5.1); Protein, Total 7.8 g/dL (5.8-8.1); Sodium 142 mmol/L (136-145)
[2023-09-04 19:09] LABS: SARS-CoV-2 NAA Rapid Test Not Detected (NotDetected)
[2023-09-04] MEDS ORDERED: Acetaminophen 325 MG TAB PO PRN (20:30)
[2023-09-04] MEDS ORDERED: Ondansetron PF 4 MG/2 ML Vial IVP PRN (20:30)
[2023-09-04] MEDS ORDERED: Ondansetron ODT 4 MG TAB SL PRN (20:30)
[2023-09-04] MEDS ORDERED: Glucagon 1 MG/ML KIT IM PRN ×2 (20:47→20:49)
[2023-09-04] MEDS ORDERED: Dextrose 50% Abboject 50 ML SYRINGE SLOW IVP PRN ×2 (20:47→20:49)
[2023-09-04] MEDS ORDERED: Dextrose 5% in Water 1,000 ML IV PRN ×2 (20:47→20:49)
[2023-09-04 21:10] VITALS: BMI 18.9
[2023-09-04 21:25] LABS: Troponin I Less than 0.010 ng/mL (< 0.028)
[2023-09-04] MEDS: Famotidine/PF 20 mg/2ml Vial SLOW IVP SCH (21:31)
[2023-09-04] MEDS: Ketorolac Tromethamine 30 MG (1 mL) VIAL IVP SCH (23:39)
[2023-09-04] MEDS: Acetaminophen 500 MG TAB PO SCH (23:40)
[2023-09-05 00:39] LABS: Troponin I Less than 0.010 ng/mL (< 0.028)
[2023-09-05 05:25] LABS: #Monocytes 0.8 thou/uL (0.11-0.59); #Neutrophils 6.2 thou/uL (1.40-6.50); %Basophils 0.3 % (0.0-1.0); %Eosinophils 0.4 % (0.0-10.0); %Lymphocytes 22.6 % (21.0-51.0); %Neutrophils 67.5 % (42.0-75.0); Hemoglobin 11.5 g/dL (12.0-16.0); Mean Corpuscular HGB CONC 32.9 g/dL (32.0-36.0); Mean Corpuscular Hemoglobin 26.7 pg (27.0-31.0); Mean Corpuscular Volume 81.2 fl (78.0-98.0); Mean Platelet Volume 10.6 fL (7.4-10.4); Platelet Count 254 10x3/uL (130-400); RBC Distribution Width 14.6 % (11.5-14.5); Red Blood Cell (RBC) Count 4.31 mill/uL (4.20-5.40); White Blood Cell (WBC) Count 9.1 10x3/uL (4.8-10.8)
[2023-09-05 05:43] LABS: INR-International Normal Ratio 1.1; PTT 31.2 sec (22.9-36.1); Prothrombin Time 14.4 sec (12.0-14.7)
[2023-09-05] MEDS: HumaLOG 300 UNITS/3 ML VIAL SC PRN (05:49)
[2023-09-05 05:54] LABS: Anion Gap 13 mmol/L (10-20); BUN (Urea Nitrogen) 16 mg/dL (9.8-20.1); Calc. Creatinine Clearance 53 mL/min (70-130); Calcium 8.8 mg/dL (7.8-10.44); Carbon Dioxide 23 mmol/L (23-31); Chloride 108 mmol/L (98-107); Estimated GFR 79; Glucose 171 mg/dL (80-115); Potassium 3.3 mmol/L (3.5-5.1); Sodium 141 mmol/L (136-145)
[2023-09-05] MEDS: Lorazepam 2 MG/ML VIAL SLOW IVP SCH (07:31)
[2023-09-05] MEDS: Scopolamine 1 mg/72 hour Patch TD SCH (10:05)
[2023-09-05] MEDS: Potassium Citrate 10 MEQ TAB PO SCH (12:39)
[2023-09-05] MEDS: Enoxaparin 40 MG (0.4 mL) SYRINGE SC SCH (20:16)
[2023-09-05] MEDS: QUEtiapine 25 MG TAB PO PRN (20:17)
[2023-09-06 05:51] LABS: Troponin I Less than 0.010 ng/mL (< 0.028)
[2023-09-06] MEDS: Isosorbide Mononitrate 30 MG ER.TAB PO SCH (09:39)
[2023-09-06] MEDS: Atorvastatin Calcium 20 MG TAB PO SCH (09:39)
[2023-09-06] MEDS: Glimepiride 1 MG TAB PO SCH (09:54)
[2023-09-06 12:37] VITALS: TEMP 98.7
[2023-09-06 16:32] VITALS: BP 143/67
[2023-09-08] MEDS ORDERED: FLU VACC QS2023(65UP)/MF59C/PF 60 MCG/0.5 ML SYRINGE IM ONE (09:00)
== END 2023-09-06 14:50 | disposition home or self-care (01) | DRG 158 ==
LOC: ERS 17:01 → 2SE 20:11 → OBSVTOIN 09-06 10:45
PROVIDERS: ADMIT Student in an Organized Health Care Education/Training Program; ATTEND Family Medicine
DX: S02.40DA Maxillary fracture, left side, initial encounter for closed fracture (principal); S02.32XA Fracture of orbital floor, left side, initial encounter for closed fracture; S02.40FA Zygomatic fracture, left side, initial encounter for closed fracture; R55 Syncope and collapse; I10 Essential (primary) hypertension; E78.5 Hyperlipidemia, unspecified; E11.9 Type 2 diabetes mellitus without complications; R29.810 Facial weakness; F17.210 Nicotine dependence, cigarettes, uncomplicated; Z90.710 Acquired absence of both cervix and uterus; Z79.899 Other long term (current) drug therapy; Z79.84 Long term (current) use of oral hypoglycemic drugs; Z71.6 Tobacco abuse counseling; Z11.52 Encounter for screening for COVID-19; E11.65 Type 2 diabetes mellitus with hyperglycemia; R11.2 Nausea with vomiting, unspecified; K52.9 Noninfective gastroenteritis and colitis, unspecified
CPT/HCPCS: 36415; 36416; 70450; 70496; 70498; 70551; 71045; 74177; 80048; 80053; 80307; 81001; 82010; 82550; 82805; 83690; 83735; 83880; 84484; 85025; 85610; 85730; 93005; 93010; 93306; 94760; 96361; 96372; 96374; 96375; 96376; G0378; J1650; J1815; J1885; J2060; J2270; J2405; J2550; J3010; Q9967; S0028

== ENCOUNTER 2024-07-21 11:47 | Inpatient (IN) | payer OTHER, MEDICARE ==
[2024-07-21 12:34] LABS: #Basophils Less than 0.03 10x3/uL (0.0-0.2); %Basophils 0.3 % (0.0-1.0); %Eosinophils 2.8 % (0.0-10.0); %Lymphocytes 34.6 % (21.0-51.0); %Monocytes 7.8 % (0.0-10.0); Hematocrit 45.4 % (36.0-47.0); Hemoglobin 14.7 g/dL (12.0-16.0); Mean Corpuscular HGB CONC 32.4 g/dL (32.0-36.0); Mean Corpuscular Hemoglobin 26.3 pg (27.0-31.0); Mean Corpuscular Volume 81.2 fL (78.0-98.0); Mean Platelet Volume 10.9 fL (7.4-10.4); Platelet Count 341 10x3/uL (130-400); RBC Distribution Width 14.2 % (11.5-14.5); Red Blood Cell (RBC) Count 5.59 mill/uL (4.20-5.40)
[2024-07-21 12:47] LABS: INR-International Normal Ratio 0.9; Prothrombin Time 12.5 sec (12.0-14.7)
[2024-07-21 12:57] LABS: ALT (SGPT) 25 U/L (8-55); AST (SGOT) 16 U/L (5-34); Albumin 4.3 g/dL (3.4-4.8); Alkaline Phosphatase 135 U/L (40-110); Anion Gap 13 mmol/L (10-20); BUN (Urea Nitrogen) 8 mg/dL (9.8-20.1); Calc. Creatinine Clearance 0 mL/min (70-130); Calcium 10.1 mg/dL (7.8-10.44); Carbon Dioxide 27 mmol/L (23-31); Chloride 107 mmol/L (98-107); Estimated GFR 89; Globulin 3.6 g/dL (2.4-3.5); Glucose 73 mg/dL (80-115); Protein, Total 7.9 g/dL (5.8-8.1); Sodium 144 mmol/L (136-145)
[2024-07-21 13:05] LABS: Troponin I Less than 0.010 ng/mL (< 0.028)
[2024-07-21 13:32] LABS: Bacteria/HPF None Seen HPF (None Seen); Bilirubin Negative (Negative); Blood, Urine Negative (Negative); CAUTI Indications for Culture Dysuria,urgency,freq; Clarity Clear (Clear); Glucose, Urine (Dipstick) Normal (Negative); Ketone, Urine Negative (Negative); Leukocyte Negative Leu/uL (Negative); Nitrite Negative (Negative); Protein, Urine (Dipstick) Negative (Neg-Trace); RBC/HPF 0-3 HPF (0-3); Specific Gravity, Urine 1.007 (1.002-1.036); Squamous Epithelial None Seen HPF (0-3); Urobilinogen Normal mg/dL (Less than 2); WBC/HPF 0-3 HPF (0-3); pH, Urine 7.5 (5.0-9.0)
[2024-07-21 13:35] LABS: Bilirubin, Total 0.3 mg/dL (0.2-1.2)
[2024-07-21 13:37] LABS: Urine Culture Reflex No No
[2024-07-21] MEDS ORDERED: Meclizine HCl 25 MG TAB ONE (13:46)
[2024-07-21] MEDS ORDERED: Potassium Chloride 20 MEQ TAB ONE (14:35)
[2024-07-21] MEDS ORDERED: Insulin Lispro 100 UNIT/ML 10 ML VIAL SC PRN (15:11)
[2024-07-21] MEDS ORDERED: Ondansetron ODT 4 MG TAB PO PRN (15:11)
[2024-07-21] MEDS ORDERED: Ondansetron PF 4 MG/2 ML Vial IVP PRN (15:11)
[2024-07-21] MEDS ORDERED: Dextrose 50% Abboject 50 ML SYRINGE SLOW IVP PRN (15:11)
[2024-07-21] MEDS ORDERED: Dextrose 5% in Water 1,000 ML IV PRN (15:11)
[2024-07-21] MEDS ORDERED: Acetaminophen 325 MG TAB PO PRN (15:11)
[2024-07-21] MEDS ORDERED: Glucagon 1 MG/ML KIT IM PRN (15:11)
[2024-07-21 18:13] VITALS: BMI 21.1
[2024-07-21] MEDS: Valsartan 80 MG TAB PO SCH (20:17)
[2024-07-21] MEDS: Glimepiride 2 MG TAB PO SCH (20:17)
[2024-07-21] MEDS: QUEtiapine 25 MG TAB PO PRN (21:17)
[2024-07-22 05:40] LABS: #Basophils 0.03 10x3/uL (0.0-0.2); %Basophils 0.5 % (0.0-1.0); %Eosinophils 2.3 % (0.0-10.0); %Monocytes 8.4 % (0.0-10.0); %Neutrophils 56.5 % (42.0-75.0); Hematocrit 39.4 % (36.0-47.0); Hemoglobin 12.8 g/dL (12.0-16.0); Mean Corpuscular HGB CONC 32.5 g/dL (32.0-36.0); Mean Corpuscular Hemoglobin 26.2 pg (27.0-31.0); Mean Corpuscular Volume 80.7 fL (78.0-98.0); Platelet Count 279 10x3/uL (130-400); RBC Distribution Width 14.1 % (11.5-14.5); Red Blood Cell (RBC) Count 4.88 mill/uL (4.20-5.40)
[2024-07-22 05:46] LABS: Anion Gap 14 mmol/L (10-20); BUN (Urea Nitrogen) 9 mg/dL (9.8-20.1); Calc. Creatinine Clearance 61 mL/min (70-130); Calcium 8.3 mg/dL (7.8-10.44); Carbon Dioxide 25 mmol/L (23-31); Cardiac Risk 4.1 (Less than 4.5); Chloride 108 mmol/L (98-107); Cholesterol 177 mg/dl (< 200 Desired); Estimated GFR 95; Glucose 112 mg/dL (80-115); HDL Cholesterol 43 mg/dL (>60 Neg Risk); LDL Cholesterol, Calculated 111 mg/dL; Potassium 3.3 mmol/L (3.5-5.1); Sodium 144 mmol/L (136-145); Triglycerides 117 mg/dL (Less than 150)
[2024-07-22] MEDS ORDERED: Regadenoson 0.4 MG/5 ML SYRINGE ONE (11:06)
[2024-07-22] MEDS: NIFEdipine XL 30 MG ER.TAB PO SCH (12:48)
[2024-07-22] MEDS: Isosorbide Mononitrate 30 MG ER.TAB PO SCH (12:49)
[2024-07-22] MEDS: Atorvastatin Calcium 20 MG TAB PO SCH (12:49)
[2024-07-22] MEDS: Venlafaxine XR 37.5 MG CAP PO SCH (12:49)
[2024-07-22] MEDS: Insulin Glargine 30 UNITS/0.3 ML VIAL SC SCH (12:50)
[2024-07-22] MEDS: Potassium Chloride 20 MEQ in Premix 1 BAG IVPB SCH ×2 (12:50→15:53)
[2024-07-23 11:14] VITALS: BP 148/92; TEMP 98
[2024-07-23] MEDS: Insulin Lispro 100 UNIT/ML 10 ML VIAL SC PRN (11:49)
[2024-07-23] MEDS ORDERED: Lidocaine 1% w/Epinephrine 1:100K 20 ML VIAL ONE (13:10)
== END 2024-07-23 15:44 | disposition home or self-care (01) | DRG 261 ==
LOC: ERS 11:47 → OBS 14:42 → OBSVTOIN 07-22 15:50
PROVIDERS: ADMIT Internal Medicine; ATTEND Internal Medicine
PROC: 0JH602Z Insertion of Monitoring Device into Chest Subcutaneous Tissue and Fascia, Open Approach (ICD-10-PCS; principal; 2024-07-23)
DX: I95.1 Orthostatic hypotension (principal); M48.54XA Collapsed vertebra, not elsewhere classified, thoracic region, initial encounter for fracture; I10 Essential (primary) hypertension; E87.6 Hypokalemia; E11.9 Type 2 diabetes mellitus without complications; E78.5 Hyperlipidemia, unspecified; K76.0 Fatty (change of) liver, not elsewhere classified; J43.9 Emphysema, unspecified; J44.9 Chronic obstructive pulmonary disease, unspecified; D73.89 Other diseases of spleen; J47.9 Bronchiectasis, uncomplicated; Z90.710 Acquired absence of both cervix and uterus; Z79.4 Long term (current) use of insulin; Z79.899 Other long term (current) drug therapy; Z79.02 Long term (current) use of antithrombotics/antiplatelets
CPT/HCPCS: 33285; 36415; 36416; 70450; 71045; 71275; 78451; 80048; 80053; 80061; 81001; 83880; 84484; 85025; 85610; 93005; 93017; 96374; A9502; G0378; J1815; J2785; J3480; Q9967

== ENCOUNTER 2024-08-02 15:04 | Outpatient (CLI) | payer OTHER ==
[2024-08-02 14:48] LABS: #Basophils 0.03 10x3/uL (0.0-0.2); %Basophils 0.5 % (0.0-1.0); %Eosinophils 2.1 % (0.0-10.0); %Lymphocytes 25.6 % (21.0-51.0); Hematocrit 41.8 % (36.0-47.0); Hemoglobin 13.6 g/dL (12.0-16.0); Mean Corpuscular HGB CONC 32.5 g/dL (32.0-36.0); Mean Corpuscular Hemoglobin 26.5 pg (27.0-31.0); Mean Corpuscular Volume 81.5 fL (78.0-98.0); Mean Platelet Volume 10.2 fL (7.4-10.4); Platelet Count 314 10x3/uL (130-400); RBC Distribution Width 14.2 % (11.5-14.5); Red Blood Cell (RBC) Count 5.13 mill/uL (4.20-5.40)
[2024-08-02 15:06] LABS: Anion Gap 12 mmol/L (10-20); BUN (Urea Nitrogen) 15 mg/dL (9.8-20.1); Calc. Creatinine Clearance 0 mL/min (70-130); Calcium 9.5 mg/dL (7.8-10.44); Carbon Dioxide 26 mmol/L (23-31); Chloride 109 mmol/L (98-107); Estimated GFR 76; Glucose 142 mg/dL (80-115); Potassium 3.8 mmol/L (3.5-5.1); Sodium 143 mmol/L (136-145)
== END 2024-08-02 15:05 | disposition home or self-care (01) ==
LOC: LABBT 15:04
PROVIDERS: ATTEND Internal Medicine Cardiovascular Disease
DX: Z01.812 Encounter for preprocedural laboratory examination (principal); I47.20 Ventricular tachycardia, unspecified; R55 Syncope and collapse
CPT/HCPCS: 80048; 85025

== ENCOUNTER 2024-08-03 06:06 | Day surgery (SDC) | payer OTHER, MEDICAID ==
[2024-08-03] MEDS ORDERED: fentaNYL 50 mcg/mL 1 mL Vial ONE (06:19)
[2024-08-03] MEDS ORDERED: Adenosine 6 mg (2 mL) VIAL ONE (06:19)
[2024-08-03] MEDS ORDERED: Midazolam HCl 2 mg/2 ml Vial ONE (06:20)
[2024-08-03] MEDS ORDERED: Nitroglycerin 50 MG/250 ML BOT 250 ML ONE (06:20)
[2024-08-03] MEDS ORDERED: Heparin 10,000 UNITS/ 10 ML VIAL ONE (06:20)
[2024-08-03] MEDS ORDERED: Verapamil 5 MG/2 ML VIAL ONE (06:20)
[2024-08-03] MEDS ORDERED: Iopamidol 370 76% 100 ML VIAL ONE (14:49)
== END 2024-08-03 11:09 | disposition home or self-care (01) ==
LOC: CCL 06:06
PROVIDERS: ATTEND Internal Medicine Cardiovascular Disease
PROC: 4A023N7 Measurement of Cardiac Sampling and Pressure, Left Heart, Percutaneous Approach (ICD-10-PCS; principal; 2024-08-03)
PROC: B205YZZ Plain Radiography of Left Heart using Other Contrast (ICD-10-PCS; 2024-08-03)
DX: R55 Syncope and collapse (principal); I47.20 Ventricular tachycardia, unspecified; E11.9 Type 2 diabetes mellitus without complications; I10 Essential (primary) hypertension; G47.00 Insomnia, unspecified; E78.5 Hyperlipidemia, unspecified; Z90.710 Acquired absence of both cervix and uterus; Z98.890 Other specified postprocedural states; Z79.899 Other long term (current) drug therapy
CPT/HCPCS: 93458; C1769 ×2; C1894; J1644; J2250; J3010; 99152; 99153; J0153; Q9967

== ENCOUNTER 2024-08-19 13:40 | Outpatient (CLI) | payer OTHER | END 2024-08-19 13:41 | disposition home or self-care (01) | LOC: BICRAD 13:40 | PROVIDERS: ATTEND Family Medicine | DX: M25.531 Pain in right wrist (principal) ==

== ENCOUNTER 2025-03-16 16:56 | Emergency (ER) | payer MEDICARE ==
[2025-03-16] MEDS ORDERED: Dexamethasone 4 MG TAB ONE (18:48)
[2025-03-16] MEDS ORDERED: Ibuprofen 800 MG TAB ONE (19:26)
== END 2025-03-16 20:03 | disposition home or self-care (01) ==
LOC: ERS 16:56
DX: S06.9X9A Unspecified intracranial injury with loss of consciousness of unspecified duration, initial encounter (principal); J02.9 Acute pharyngitis, unspecified; M26.609 Unspecified temporomandibular joint disorder, unspecified side; E78.5 Hyperlipidemia, unspecified; E11.9 Type 2 diabetes mellitus without complications; Z79.84 Long term (current) use of oral hypoglycemic drugs; Z79.899 Other long term (current) drug therapy; Z79.4 Long term (current) use of insulin; R29.700 NIHSS score 0
CPT/HCPCS: 70450; 70486; 87081; 87428; 87430; J8540

== ENCOUNTER 2025-04-07 20:13 | Inpatient (IN) | payer OTHER, MEDICAID ==
[2025-04-07] MEDS ORDERED: Ondansetron PF 4 MG/2 ML Vial ONE (20:57)
[2025-04-07 21:31] LABS: #Basophils 0.03 10x3/uL (0.0-0.2); #Eosinophils 0.09 10x3/uL (0.0-0.7); #Monocytes 0.67 10x3/uL (0.11-0.59); #Neutrophils 7.63 10x3/uL (1.40-6.50); %Basophils 0.3 % (0.0-1.0); %Eosinophils 0.9 % (0.0-10.0); %Lymphocytes 12.5 % (21.0-51.0); %Monocytes 6.9 % (0.0-10.0); %Neutrophils 78.5 % (42.0-75.0); Hematocrit 42.0 % (36.0-47.0); Hemoglobin 13.6 g/dL (12.0-16.0); Mean Corpuscular Hemoglobin 26.2 pg (27.0-31.0); Mean Corpuscular Volume 80.9 fL (78.0-98.0); Platelet Count 328 10x3/uL (130-400); Red Blood Cell (RBC) Count 5.19 mill/uL (4.20-5.40); White Blood Cell (WBC) Count 9.73 10x3/uL (4.8-10.8)
[2025-04-07 21:48] LABS: ALT (SGPT) 45 U/L (Less than 34); AST (SGOT) 40 U/L (11-34); Albumin 4.6 g/dL (3.1-4.5); Alkaline Phosphatase 116 U/L (40-110); Anion Gap 18 mmol/L (10-20); BUN (Urea Nitrogen) 16 mg/dL (9.8-20.1); Bilirubin, Total 0.3 mg/dL (0.3-1.2); Calc. Creatinine Clearance 0 mL/min (70-130); Calcium 10.0 mg/dL (7.8-10.44); Carbon Dioxide 24 mmol/L (23-31); Chloride 105 mmol/L (98-107); Globulin 3.2 g/dL (2.4-3.5); Glucose 119 mg/dL (80-115); Lipase 23 U/L (8-78); Magnesium 2.0 mg/dL (1.6-2.6); Potassium 3.0 mmol/L (3.5-5.1); Sodium 144 mmol/L (136-145)
[2025-04-07 22:28] LABS: Actual Bicarbonate (HCO3v) 21.4 mEq/L (22-28); Base Excess -4.3 mEq/L (-2.0 to +3.0); Calcium, Ionized (venous) 1.03 mmol/L (1.16-1.32); Chloride (VBG) 108 mmol/L (98-106); Hematocrit-VBG 40 % (36.0-47.0); Hemoglobin (Hb) 13.6 g/dL (11.7-16.1); Potassium (VBG) 3.65 mmol/L (3.70-5.30); Sodium 142 mmol/L (133-146)
[2025-04-07 23:41] LABS: Bacteria/HPF None Seen HPF (None Seen); CAUTI Indications for Culture Alt mental st,lethar; Glucose, Urine (Dipstick) Normal (Negative); Leukocyte Negative Leu/uL (Negative); Protein, Urine (Dipstick) Negative (Neg-Trace); RBC/HPF 0-3 HPF (0-3); Specific Gravity, Urine 1.020 (1.002-1.036); WBC/HPF 0-3 HPF (0-3)
[2025-04-07 23:43] LABS: Urine Culture Reflex No No
[2025-04-08] MEDS ORDERED: Ondansetron PF 4 MG/2 ML Vial IVP PRN ×2 (03:30→03:47)
[2025-04-08] MEDS ORDERED: Acetaminophen 325 MG TAB PO PRN (03:30)
[2025-04-08] MEDS ORDERED: Calcium Carbonate 500 MG ChewTAB PO PRN (03:47)
[2025-04-08] MEDS ORDERED: Senokot S 8.6-50 MG TAB PO PRN (03:47)
[2025-04-08 03:51] LABS: T4 6.61 ug/dL (4.87-11.72); Thyroid Stimulating Hormone 3.2992 uIU/mL (0.35-4.94)
[2025-04-08] MEDS ORDERED: Electrolyte Replacement Protocol 1 EACH FS PRN (04:00)
[2025-04-08 04:46] VITALS: BMI 21.0
[2025-04-08] MEDS: Acetaminophen 325 MG TAB PO PRN (05:01)
[2025-04-08] MEDS ORDERED: Glucagon 1 MG/ML KIT IM PRN (05:11)
[2025-04-08] MEDS ORDERED: Dextrose 50% Abboject 50 ML SYRINGE SLOW IVP PRN (05:11)
[2025-04-08] MEDS: Enoxaparin 40 MG (0.4 mL) SYRINGE SC SCH (10:52)
[2025-04-08] MEDS: Insulin Glargine 30 UNITS/0.3 ML VIAL SC SCH (10:55)
[2025-04-08] MEDS: Valsartan 80 MG TAB PO SCH (10:55)
[2025-04-08] MEDS: Isosorbide Mononitrate 30 MG ER.TAB.S PO SCH (10:55)
[2025-04-08] MEDS: NIFEdipine XL 30 MG ER.TAB PO SCH (10:56)
[2025-04-08] MEDS: Magnesium 2 GM/50 ML(in water) 2 GM in Premix 1 BAG IVPB SCH (10:57)
[2025-04-08] MEDS: QUEtiapine 25 MG TAB PO PRN (21:02)
[2025-04-09 04:05] LABS: #Basophils 0.03 10x3/uL (0.0-0.2); #Eosinophils 0.21 10x3/uL (0.0-0.7); #Monocytes 0.72 10x3/uL (0.11-0.59); #Neutrophils 4.55 10x3/uL (1.40-6.50); %Basophils 0.4 % (0.0-1.0); %Eosinophils 2.9 % (0.0-10.0); %Lymphocytes 23.1 % (21.0-51.0); %Monocytes 10.0 % (0.0-10.0); %Neutrophils 63.2 % (42.0-75.0); Hematocrit 36.1 % (36.0-47.0); Hemoglobin 11.4 g/dL (12.0-16.0); Mean Corpuscular Hemoglobin 25.9 pg (27.0-31.0); Mean Corpuscular Volume 82.0 fL (78.0-98.0); Platelet Count 283 10x3/uL (130-400); Red Blood Cell (RBC) Count 4.40 mill/uL (4.20-5.40); White Blood Cell (WBC) Count 7.20 10x3/uL (4.8-10.8)
[2025-04-09 04:35] LABS: ALT (SGPT) 41 U/L (Less than 34); AST (SGOT) 33 U/L (11-34); Albumin 3.8 g/dL (3.1-4.5); Alkaline Phosphatase 88 U/L (40-110); Anion Gap 15 mmol/L (10-20); BUN (Urea Nitrogen) 10 mg/dL (9.8-20.1); Bilirubin, Total 0.4 mg/dL (0.3-1.2); Calc. Creatinine Clearance 49 mL/min (70-130); Calcium 8.7 mg/dL (7.8-10.44); Carbon Dioxide 24 mmol/L (23-31); Cardiac Risk 5.0 (Less than 4.5); Chloride 107 mmol/L (98-107); Cholesterol 164 mg/dl (< 200 Desired); Globulin 2.4 g/dL (2.4-3.5); Glucose 80 mg/dL (80-115); HDL Cholesterol 33 mg/dL (>60 Neg Risk); LDL Cholesterol, Calculated 92 mg/dL; Potassium 3.8 mmol/L (3.5-5.1); Sodium 142 mmol/L (136-145); Triglycerides 195 mg/dL (Less than 150)
[2025-04-09] MEDS: Melatonin 3 MG TAB PO SCH (20:27)
[2025-04-10 12:14] VITALS: BP 161/76; TEMP 98
== END 2025-04-10 14:56 | disposition home or self-care (01) | DRG 312 ==
LOC: ERS 20:13 → 2NO 04-08 03:08 → OBSVTOIN 04-09 14:18
PROVIDERS: ADMIT Internal Medicine; ATTEND Internal Medicine
DX: R55 Syncope and collapse (principal); R78.81 Bacteremia; E87.20 Acidosis, unspecified; E78.5 Hyperlipidemia, unspecified; E11.9 Type 2 diabetes mellitus without complications; I10 Essential (primary) hypertension; E87.6 Hypokalemia; K76.0 Fatty (change of) liver, not elsewhere classified; F39 Unspecified mood [affective] disorder; E86.0 Dehydration; Z90.710 Acquired absence of both cervix and uterus; Z98.890 Other specified postprocedural states; Z79.899 Other long term (current) drug therapy; Z79.4 Long term (current) use of insulin
CPT/HCPCS: 36415; 36416; 70450; 71045; 74177; 78452; 80053; 80061; 81001; 82805; 83036; 83605; 83690; 83735; 84436; 84443; 84484; 85025; 87040; 87077; 87149; 93005; 93017; 93306; 94760; 96372; 96375; A9502; G0378; J0692; J1650; J1815; J2405; J2785; J3475; J3480; J7120; Q9967